=== PATIENT | female | born 1995 | race Caucasian/White ===

== ENCOUNTER 2018-10-28 19:45 | Emergency (ER) | payer OTHER, SELFPAY ==
[2018-10-28 19:46] VITALS: BP 116/73; PULSE 95; RESP 16; TEMP 36.9; O2SAT 99; BMI 18.7
[2018-10-28 20:48] VITALS: BP 126/93; PULSE 100; RESP 16
--- NOTE | 2018-10-28 21:16 | PCM.HP.STD ---
History of Present Illness Date of Admission: 10/28/18 The patient is a 23 year old female presents from [facility] for treatment of ectopic . LMP approx 7 w 1 d ago (09/08/18) and presented for evaluation with spotting and cramping in mid lower abdomen. Describes pain as 6-7/ 10 on pain scale. mild nausea, no vomiting. First . States periods were regular. Denies any medical problems. Asking about going out of state on [place]oneymoon for two weeks, starting Nov 08. SONO at [facility]: Uterus RV with thickened endometrial stripe of 3.5 cm. with 4.6 mm echolucency possible pseudosac L adnexa with hypervascularity with appearance of ring of fire suspicious for ectopic. Small amt of free fluid LABS from [facility]: A negative, RhoGAM given. Hgb 14.9 g/dl. Cr 0.7 mg/dl AST/ALT/Alkaline phos WNL. Beta HCG 671.7 mIU/ml. 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 Talkative - Physical Exam General: Alert, Oriented x3, Cooperative, No apparent distress HEENT: Atraumatic, EOMI Oral: Moist Mucosa Neck: Supple Abdomen: Soft, Non Tender - Nonsurgical Extremities: No clubbing, No cyanosis, No edema Skin: No rashes Neurological: Cranial nerves II-XII grossly intact Psych/Mental Status: Normal Affect, Appropriate Vital Signs Temp Pulse Resp BP Pulse Ox 98.5 F 100 16 126/93 H 99 10/28/18 19:46 10/28/18 20:48 10/28/18 20:48 10/28/18 20:48 10/28/18 19:46 Oxygen Delivery Method Room Air Weight: 51 kg Body Mass Index (BMI) 18.7 Assessment/Plan 7w 1 d Ectopic . Clinically stable with nonsurgical abdomen, quant BHCG at [facility] (where she will also have her f/u labs) 617.7 mIU/ml Hgb stable. L adnexa with increased vascularity and ring of fire appearance c/w ectopic, but no FHR noted. Advised pt re option for surgery vs medical management. Prefers medical management. reviewed R,B,A or Methotrexate tx. Single dose at approx 50 mg/m2 to be given tonight. Will need close follow up labs.. Plan quant at [facility] on 11/01/18 and then q wk f/u labs at [facility] with visits with Dr. Zayas in [place]. Advised of potential for inc abdominal pain, rupture of fallopian tube with surgical intervention required should these occur. Expresses understanding of all. All questions answered to patient's satisfaction. Methotrexate to be given. Return [facility] on 11/01/18 for labs, and to Dr. Zayas on 11/04/18. for next labs
--- NOTE | 2018-10-28 21:24 | HP.PCM_ITS ---
History of Present Illness Date of Admission: 10/28/18 The patient is a 23 year old female presents from [facility] for treatment of ectopic . LMP approx 7 w 1 d ago (09/08/18) and presented for evaluation with spotting and cramping in mid lower abdomen. Describes pain as 6-7/ 10 on pain scale. mild nausea, no vomiting. First . States periods were regular. Denies any medical problems. Asking about going out of state on Honeymoon for two weeks, starting Nov 08. SONO at [facility]: Uterus RV with thickened endometrial stripe of 3.5 cm. with 4.6 mm echolucency possible pseudosac L adnexa with hypervascularity with appearance of ring of fire suspicious for ectopic. Small amt of free fluid LABS from [facility]: A negative, RhoGAM given. Hgb 14.9 g/dl. Cr 0.7 mg/dl AST/ALT/Alkaline phos WNL. Beta HCG 671.7 mIU/ml. 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 Talkative - Physical Exam General: Alert, Oriented x3, Cooperative, No apparent distress HEENT: Atraumatic, EOMI Oral: Moist Mucosa Neck: Supple Abdomen: Soft, Non Tender - Nonsurgical Extremities: No clubbing, No cyanosis, No edema Skin: No rashes Neurological: Cranial nerves II-XII grossly intact Psych/Mental Status: Normal Affect, Appropriate Vital Signs Temp Pulse Resp BP Pulse Ox 98.5 F 100 16 126/93 H 99 10/28/18 19:46 10/28/18 20:48 10/28/18 20:48 10/28/18 20:48 10/28/18 19:46 Oxygen Delivery Method Room Air Weight: 51 kg Body Mass Index (BMI) 18.7 Assessment/Plan 7w 1 d Ectopic . Clinically stable with nonsurgical abdomen, quant BHCG at [facility] (where she will also have her f/u labs) 617.7 mIU/ml Hgb stable. L adnexa with increased vascularity and ring of fire appearance c/w ectopic, but no FHR noted. Advised pt re option for surgery vs medical management. Prefers medical management. reviewed R,B,A or Methotrexate tx. Single dose at approx 50 mg/m2 to be given tonight. Will need close follow up labs.. Plan quant at [facility] on 11/01/18 and then q wk f/u labs at [facility] with visits with Dr. Zayas in [place]. Advised of potential for inc abdominal pain, rupture of fallopian tube with surgical intervention required should these occur. Expresses understanding of all. All questions answered to patient's satisfaction. Methotrexate to be given. Return [facility] on 11/01/18 for labs, and to Dr. Zayas on 11/04/18. for next labs
--- NOTE | 2018-10-28 21:33 | PCM.DC ---
- Discharge Diagnoses Current Active Problems: ECTOPIC You will use the following diet at home:: No restrictions - Do NOT take a multivitamin or folic acid (B vitamins) while being treated for ectopic with methotrexate. Discharge Activity: Return to Normal Activity May resume sexual activity in: 2 weeks Call your doctor if you observe: Shortness of breath, Uncontrolled pain - If you have pain not controlled by Tylenol , call the office at [phone] for appointment. Pending Tests on Discharge: You will need to go to [facility] for lab testing : 1.) 11/01/18 for repeat Beta HCG. 2.) 11/04 for repeat Beta HCG, Liver tests and creatinine. Allergies/Adverse Reactions: Allergies No Known Allergies Allergy (Verified 10/28/18 19:49) Primary Care Physician: Vidal Gonzalez MD [Primary Care Provider] - Test Results: Test results from this visit will be discussed in further detail at your follow-up appointment, if applicable. Please Follow Up With: Braulio Zayas MD - [phone] to schedule appt for 11/04/18 When: at [address] [place], [place]. ([facility])
--- NOTE | 2018-10-28 21:38 | DCINST_ITS ---
- Discharge Diagnoses Current Active Problems: ECTOPIC You will use the following diet at home:: No restrictions - Do NOT take a multivitamin or folic acid (B vitamins) while being treated for ectopic with methotrexate. Discharge Activity: Return to Normal Activity May resume sexual activity in: 2 weeks Call your doctor if you observe: Shortness of breath, Uncontrolled pain - If you have pain not controlled by Tylenol , call the office at [phone] for appointment. Pending Tests on Discharge: You will need to go to [facility] for lab testing : 1.) 11/01/18 for repeat Beta HCG. 2.) 11/04 for repeat Beta HCG, Liver tests and creatinine. Allergies/Adverse Reactions: Allergies No Known Allergies Allergy (Verified 10/28/18 19:49) Primary Care Physician: Vidal Gonzalez MD [Primary Care Provider] - Test Results: Test results from this visit will be discussed in further detail at your follow- up appointment, if applicable. Please Follow Up With: Braulio Zayas MD - [phone] to schedule appt for 11/04/18 When: at [address] [place], [place]. ([facility])
[2018-10-28 22:21] VITALS: BP 112/74; PULSE 70; RESP 16; O2SAT 100
--- NOTE | 2018-10-28 22:36 | ED.RN ---
IV that was placed from [facility] was removed with angiocath intact. Methotrexate verified by this RN and Yari RN along with student. Discharge instructions reviewed with patient that was provided by Dr. Morley. PT understands instructions. All questions answered, no further concerns. PT ambulated to lobby with an independent gait with spouse. Their local tanker truck driver was in lobby.
--- NOTE | 2018-10-29 00:44 | ED.DCSUM_ITS ---
- ER Visit Summary Date of Service: 10/28/18 Chief Complaint: Ectopic History of Present Illness: The patient is a 23 F patient was sent up from [facility] in [place] with findings of ectopic . Patient was discussed with Dr. adenike Healy who asked the patient be sent to the ER here for her to evaluate. Patient is currently 7 weeks . She has had bleeding and lower abdominal pain for the past 4 days. Patient was found to be Rh- and did receive RhoGam. This is patient's first . Physical Examination: Vital signs unremarkable. Patient sitting upright in bed no acute distress. Heart is regular rate and rhythm. Lung sounds are clear. Abdomen is soft with mild lower abdominal tenderness. No guarding or rebound. Test Results: Test results from outside facility are reviewed. Hemoglobin is 14.9 with a quant of 617. Ultrasound revealed an abnormal echogenicity to the left adnexa with adjacent free fluid. Surrounding hypervascularity makes this suspicious for an ectopic . There is a 4.6 mm echolucency in the uterus which may represent pseudotumor. Emergency Department Course and Treatment: Dr. Morley was called on patient's arrival. She presented to the emergency room and evaluate the patient. Patient was given methotrexate. Dr. Morley had discharge instructions written and will follow-up. Treatment Plan: [] Disposition: Discharge Impression: Ectopic This note was generated with [employer] dictation software. It may contain incorrect words, spelling, and punctuation that were not noted in review of the chart prior to signing ED Disposition - Plan for ED Patient: Disposition: Home or Assisted Living Chief Complaint: Referrals: Vidal Gonzalez MD [Primary Care Provider] -
--- OUTSIDE RECORDS SUMMARY | 2018-12-30 23:48 | XMS RPT_ITS ---
:1995 Author Organization OHIP Care Team Providers Name Role Phone JESSCIA BENNETT [facility] Admitting Unavailable [facility] Attending Unavailable KIKO [facility] Primary Care Unavailable ALEXUS, DR LENY Taylor Admitting Unavailable ALEXUS, DR LENY Taylor Attending Unavailable DR LENY VAUGHAN Primary Care Unavailable NO, DOCTOR ON Referring Unavailable NO, DOCTOR ON Consulting Unavailable ISABEL TEJADA Admitting Unavailable ISABEL TEJADA Attending Unavailable ISABEL TEJADA Primary Care Unavailable VIDAL PAUL Consulting Unavailable PROVIDER, UNKNOWN Consulting Unavailable PROVIDER, UNKNOWN Consulting Unavailable PROVIDER, UNKNOWN Consulting Unavailable Rylie Morrow Attending Unavailable Vidal Paul Primary Care Unavailable PROBLEMS PROBLEMS DATE TYPE CONDITION / CODE ATTENDING STATUS SOURCE 10/28/[address] Whit VAUGHAN Diagnosis related LENY Taylor [facility] conditions, first Hospital trimester / Repository K49742(ICD-10) 10/28/[address] Whit VAUGHAN Diagnosis related [facility] conditions, first Hospital trimester / Repository Q63659(ICD-10) 10/28/2018 Secondary Less than [address] Whit VAUGHANerene Diagnosis gestation of [facility] / Hospital Z3A01(ICD-10) Repository 10/28/[address] ALEXUS Active [facility] Diagnosis ectopic [facility] intrauterine Repository / O0090(ICD-10) PROCEDURES PROCEDURES No Procedure Records FoundRESULTS RESULTS PREG SERUM QUANT Collected: 11/01/2018 Status: F Source: [facility] 8:39 AM [facility] REPOSITORY TYPE CODE TESTS RESULT OUT OF REFERENCE UNITS RANGE LAB HCG mIU/mL QUANTITATI VE(LOINC) HCG QUANTITATIVE 263.28 Result Comment: Reference Range: Male: <5 Female: Non: <5 1 - 7 days : 5 - 50 1 - 2 weeks: 50 - 500 2 - 3 weeks: 100 - 5000 3 - 4 weeks: 500 - 10,000 4 - 5 weeks: 1000 - 50,000 5 - 6 weeks: 10,000 - 100,000 6 - 8 weeks: 15,000 - 200,000 2 - 3 months: 10,000 - 100,000 2ND TRIMESTER 3000-50,000 3RD TRIMESTER 1000-50,000 Performed By: #### [id number] #### [facility],[address] [place] [address] EMERGENCY DEPARTMENT Observed: 10/29/2018 Status: F Source: [place] SUMMARY 2:44 PM [facility] REPOSITORY [facility] Medical Records Department [address] [place] [address] Emergency Department Summary 10/29/18 0042 MR#: [id number] Acct: [id number] Name: JEANNETTE MARINO Rep #: [id number] : 1995 23 From: Rylie Morrow MD PCP: Vidal Paul MD Status: DEP ER - ER Visit Summary Date of Service: 10/28/18 Chief Complaint: Ectopic History of Present Illness: The patient is a 23 F patient was sent up from [facility] in [place] with findings of ectopic . Patient was discussed with Dr. aednike Helay who asked the patient be sent to the ER here for her to evaluate. Patient is currently 7 weeks . She has had bleeding and lower abdominal pain for the past 4 days. Patient was found to be Rh- and did receive RhoGam. This is patient's first . Physical Examination: Vital signs unremarkable. Patient sitting upright in bed no acute distress. Heart is regular rate and rhythm. Lung sounds are clear. Abdomen is soft with mild lower abdominal tenderness. No guarding or rebound. Test Results: Test results from outside facility are reviewed. Hemoglobin is 14.9 with a quant of 617. Ultrasound revealed an abnormal echogenicity to the left adnexa with adjacent free fluid. Surrounding hypervascularity makes this suspicious for an ectopic . There is a 4.6 mm echolucency in the uterus which may represent pseudotumor. Emergency Department Course and Treatment: Dr. Tejada was called on patient's arrival. She presented to the emergency room and evaluate the patient. Patient was given methotrexate. Dr. Tejada had discharge instructions written and will follow-up. Treatment Plan: [] Disposition: Discharge Impression: Ectopic This note was generated with Draft dictation software. It may contain incorrect words, spelling, and punctuation that were not noted in review of the chart prior to signing ED Disposition - Plan for ED Patient: Disposition: Home or Assisted Living Chief Complaint: Referrals: Vidal Paul MD [Primary Care Provider] - What to do if you have Problems For any increased pain, shortness of breath, bleeding, nausea or vomiting, chest pain, or any unexpected problems, contact your Primary Care Provider. Call [facility] ([phone]) or report to the closest Emergency Room. Call 911 if necessary. 10/29/18 3048 <Electronically signed by Rylie Morrow MD> Date Rylie Morrow MD Cosigner Signature (If Indicated): Date CC: Vidal Paul MD HISTORY AND PHYSICAL Observed: 10/28/2018 Status: F Source: [place] EXAM 9:41 PM [facility] REPOSITORY [facility] Medical Records Department [address] [place] [address] History and Physical 10/28/182115 MR#: [id number] Acct: [id number] Name: JEANNETTE MARINO Rep #: [id number] : 1995 From: Isabel Tejada MD PCP: Vidal Paul MD Status: REG ER Y Location: ED History of Present Illness Date of Admission: 10/28/18 The patient is a 23 year old female presents from [facility] for treatment of ectopic . LMP approx 7 w 1 d ago (09/08/18) and presented for evaluation with spotting and cramping in mid lower abdomen. Describes pain as 6-7/ 10 on pain scale. mild nausea, no vomiting. First . States periods were regular. Denies any medical problems. Asking about going out of state on Honeymoon for two weeks, starting Nov 08. SONO at [facility]: Uterus RV with thickened endometrial stripe of 3.5 cm. with 4.6 mm echolucency possible pseudosac L adnexa with hypervascularity with appearance of ring of fire suspicious for ectopic. Small amt of free fluid LABS from [facility]: A negative, RhoGAM given. Hgb 14.9 g/dl. Cr 0.7 mg/dl AST/ALT/Alkaline phos WNL. Beta HCG 671.7 mIU/ml. 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 Talkative - Physical Exam General: Alert, Oriented x3, Cooperative, No apparent distress HEENT: Atraumatic, EOMI Oral: Moist Mucosa Neck: Supple Abdomen: Soft, Non Tender - Nonsurgical Extremities: No clubbing, No cyanosis, No edema Skin: No rashes Neurological: Cranial nerves II-XII grossly intact Psych/Mental Status: Normal Affect, Appropriate Vital Signs Temp Pulse Resp BP Pulse Ox 98.5 F 100 16 126/93 H 99 10/28/18 19:46 10/28/18 20:48 10/28/18 20:48 10/28/18 20:48 10/28/18 19:46 Oxygen Delivery Method Room Air Weight: 51 kg Body Mass Index (BMI) 18.7 Assessment/Plan 7w 1 d Ectopic . Clinically stable with nonsurgical abdomen, quant BHCG at [facility] (where she will also have her f/u labs) 617.7 mIU/ml Hgb stable. L adnexa with increased vascularity and ring of fire appearance c/w ectopic, but no FHR noted. Advised pt re option for surgery vs medical management. Prefers medical management. reviewed R,B,A or Methotrexate tx. Single dose at approx 50 mg/m2 to be given tonight. Will need close follow up labs.. Plan quant at [facility] on 11/01/18 and then q wk f/u labs at [facility] with visits with Dr. Zayas in [place]. Advised of potential for inc abdominal pain, rupture of fallopian tube with surgical intervention required should these occur. Expresses understanding of all. All questions answered to patient's satisfaction. Methotrexate to be given. Return [facility] on 11/01/18 for labs, and to Dr. Zayas on 11/04/18. for next labs 10/28/18 2141 <Electronically signed by Isabel Tejada MD> Date Isabel Tejada MD [facility] Signature: Date (if applicable) CC: Isabel Tejada MD; Vidal Paul MD Signed DISCHARGE INSTRUCTION Observed: 10/28/2018 Status: F Source: [place] 9:39 PM [facility] REPOSITORY [facility] Medical Records Department [address] [place] [address] Instructions for Home/Discharge Instructions 10/28/182132 MR#: [id number] Acct: [id number] Name: JEANNETTE MARINO Rep #: [id number] : 1995 From: Isabel Tejada MD PCP: Vidal Paul MD Status: REG ER - Discharge Diagnoses Current Active Problems: ECTOPIC You will use the following diet at home:: No restrictions - Do NOT take a multivitamin or folic acid (B vitamins) while being treated for ectopic with methotrexate. Discharge Activity: Return to Normal Activity May resume sexual activity in: 2 weeks Call your doctor if you observe: Shortness of breath, Uncontrolled pain - If you have pain not controlled by Tylenol , call the office at [phone] for appointment. Pending Tests on Discharge: You will need to go to [facility] for lab testing : 1.) 11/01/18 for repeat Beta HCG. 2.) 11/04 for repeat Beta HCG, Liver tests and creatinine. Allergies/Adverse Reactions: Allergies No Known Allergies Allergy (Verified 10/28/18 19:49) Primary Care Physician: Vidal Paul MD [Primary Care Provider] - Test Results: Test results from this visit will be discussed in further detail at your follow-up appointment, if applicable. Please Follow Up With: Braulio Zayas MD - [phone] to schedule appt for 11/04/18 When: at [facility] BETO Ramirez. ([facility]) 10/28/182138 <Electronically signed by Isabel Tejada MD> Date Isabel Tejada MD CC: Vidal Paul MD Signed CBC Collected: 10/28/2018 Status: F Source: [facility] 3:40 PM [facility] REPOSITORY TYPE CODE TESTS RESULT OUT OF RANGE REFERENCE UNITS LAB CBC(LOINC) CBC Result Comment: CBC-COMPLETE BLOOD COUNT LAB WBC(LOINC) 4.5 - 10.8 x 10EE3/UL WBC High 11.2 LAB RBC(LOINC) 4.10 - x 10EE6/UL 5.30 RBC 5.12 LAB HEMOGLOBIN(LOINC 12.0 - g/dl ) 16.0 HEMOGLOBIN 14.9 LAB HEMATOCRIT(LOINC 34.0 - % ) 46.0 HEMATOCRIT 44.3 LAB MCV(LOINC) 80 - 99 fl MCV 87 LAB MCH(LOINC) 27 - 33 pg MCH 29 LAB MCHC(LOINC) 32 - 36 X10 3 MCHC 34 LAB RDW/CV(LOINC) 12.0 - % 15.6 RDW/CV 13.5 LAB PLATELET(LOINC) 150 - 450 x10EE3/UL PLATELET 265 LAB MPV(LOINC) 6.6 - 10.5 fl MPV 8.1 Result Comment: AUTOMATED DIFFERENTIAL LAB NEUT %(LOINC) 46.0 - 76.0 % NEUT % High 81.2 LAB LYMPH %(LOINC) 20.0 - 45.0 % Low LYMPH % 13.4 LAB MONOS %(LOINC) 0.0 - 10.0 % MONOS % 4.5 LAB EO %(LOINC) 0.0 - 7.0 % EO % 0.6 LAB BASO %(LOINC) 0.0 - 2.0 % BASO % 0.3 LAB Lymph #(LOINC) 0.80 - 2.80 x10EE3/U L Lymph # 1.50 LAB Neut #(LOINC) 1.50 - 7.10 x10EE3/U L Neut # High 9.10 LAB Morton #(LOINC) 0.20 - 1.00 x10EE3/U L Morton # 0.50 LAB EO #(LOINC) 0.00 - 0.50 x10EE3/U L EO # 0.10 LAB Baso #(LOINC) 0.00 - 0.10 x10EE3/U L Baso # 0.00 LAB MANUAL DIFF(LOINC) MANUAL DIFF N/A LAB MORPHOLOGY(LOINC ) MORPHOLOGY N/A Result Comment: {CD] Performed By: #### [id number] #### [facility],[address] [place] [address] URINALYSIS Collected: 10/28/2018 Status: F Source: [facility] 3:40 PM [facility] REPOSITORY TYPE CODE TESTS RESULT OUT OF REFERENCE UNITS RANGE LAB URINALYSIS (LOINC) URINALYSIS Result Comment: URINALYSIS LAB Specimen Type(LOINC) Specimen Type Clean catch LAB Color(LOINC) NORMAL: YELLOW Color p.yel LAB Clarity(LOINC) NORMAL: CLEAR Clarity clear LAB ph(LOINC) NORMAL: 5.0-8.0 ph 6 LAB Protein(LOINC) NORMAL: NEGATIVE Protein NEG LAB Glucose(LOINC) NORMAL: NORMAL Glucose NORM LAB Ketone(LOINC) NORMAL: NEGATIVE Ketone NEG LAB Bilirubin(LOINC) NORMAL: NEGATIVE Bilirubin NEG LAB Blood(LOINC) NORMAL: NEGATIVE Blood Abnormal 150 LAB Urobilinog(LOINC) NORMAL: NORMAL Urobilinog NORM LAB Sp [place](LOINC) NORMAL: 1.010-1.030 Sp [place] 1.010 LAB Nitrite(LOINC) NORMAL: NEGATIVE Nitrite NEG LAB Leukocytes(LOINC) NORMAL: NEGATIVE Leukocytes NEG LAB Microscopic(LOINC ) Microscopic SEE BELOW Result Comment: MICROSCOPIC LAB Wbc(LOINC) 0-5/hpf Wbc NONE LAB Rbc(LOINC) 0-3/hpf Rbc 5-10 LAB Casts(LOINC) Casts NONE LAB Crystals(LOINC) Crystals NONE LAB Amorphous(LOINC) Amorphous NONE LAB Bacteria(LOINC) Bacteria NONE LAB Epi Cells(LOINC) Epi Cells NONE LAB Mucous(LOINC) Mucous NONE LAB Yeast(LOINC) Yeast NONE Performed By: #### [id number] #### [facility],[address] [place] [address] CMP WITH EGFR Collected: 10/28/2018 Status: F Source: [facility] 3:40 PM [facility] REPOSITORY TYPE CODE TESTS RESULT OUT OF RANGE REFERENCE UNITS LAB CMP with eGFR(LOINC) CMP with eGFR Result Comment: COMPREHENSIVE METABOLIC PANEL LAB SODIUM(LOINC) 136 - 145 mmol/l SODIUM 137 LAB POTASSIUM(LOINC) 3.5 - 5.1 mmol/L POTASSIUM 3.5 LAB CHLORIDE(LOINC) 98 - 107 mmol/L CHLORIDE 102 LAB CO2(LOINC) 21.0 - mmol/L 31.0 CO2 24.7 LAB GLUCOSE(LOINC) 74 - 106 mg/dl GLUCOSE 98 LAB BUN(LOINC) 6 - 20 mg/dl BUN 9 LAB CREATININE(LOINC) 0.6 - 1.2 mg/dl CREATININE 0.7 LAB AST/SGOT(LOINC) 13 - 39 U/L AST/SGOT 19 LAB ALK PHOS(LOINC) 38 - 126 U/L ALK PHOS 38 LAB CALCIUM(LOINC) 8.6 - mg/dl 10.2 CALCIUM 9.3 LAB TOTAL PROTEIN(LOINC) 6.4 - 8.3 g/dl TOTAL PROTEIN 7.6 LAB ALBUMIN(LOINC) 3.4 - 4.8 g/dL ALBUMIN 4.7 LAB GLOBULIN(LOINC) 1.5 - 3.8 G/DL GLOBULIN 2.9 LAB A/G RATIO(LOINC) 0.9 - 1.6 A/G RATIO 1.6 LAB TOTAL BILI(LOINC) 0.0 - 1.5 mg/dl TOTAL BILI 0.3 LAB B/C RATIO(LOINC) 0 - 30 ratio B/C RATIO 13 LAB ALT/SGPT(LOINC) 8 - 35 U/L ALT/SGPT 14 LAB ANION GAP(LOINC) 10 - 20 mmol/L ANION GAP 14 LAB AGE(LOINC) years AGE 23 LAB eGFR(LOINC) 60 - 999 ML/MINUTE eGFR >60 LAB eGFR(AA)(LOINC) 60 - 999 ML/MINUTE eGFR(AA) >60 Result Comment: ACCORDING TO THE NATIONAL KIDNEY DISEASE EDUCATION PROGRAM(NKDE), A NORMAL eGFR IS A VALUE GREATER THAN OR EQUAL TO 60 ML/MIN/1.73 SQ METERS. CHRONIC KIDNEY DISEASE: <60mL/MIN/1.73 SQ METERS KIDNEY FAILURE: <15mL/MIN/1.73 SQ METERS THIS TEST SHOULD ONLY BE USED FOR PATIENTS 18 YEARS OF AGE AND OLDER. Performed By: #### [id number] #### [address] [address] BB TYPE & SCREEN Collected: 10/28/2018 Status: F Source: [facility] 3:40 PM [facility] REPOSITORY TYPE CODE TESTS RESULT OUT OF REFERENCE UNITS RANGE LAB BB TYPE & SCREEN(LOIN C) BB TYPE & SCREEN Result Comment: TYPE, Rh, AND SCREEN LAB ABO(LOINC) ABO A LAB Rh(LOINC) Rh NEG LAB ANTIBODY SCR(LOINC) ANTIBODY negative SCR Performed By: #### [id number] #### [address] [place] [address] PREG SERUM QUANT Collected: 10/28/2018 Status: F Source: [facility] 3:40 PM [facility] REPOSITORY TYPE CODE TESTS RESULT OUT OF REFERENCE UNITS RANGE LAB HCG mIU/mL QUANTITATI VE(LOINC) HCG QUANTITATIVE 617.73 Result Comment: Reference Range: Male: <5 Female: Non: <5 1 - 7 days : 5 - 50 1 - 2 weeks: 50 - 500 2 - 3 weeks: 100 - 5000 3 - 4 weeks: 500 - 10,000 4 - 5 weeks: 1000 - 50,000 5 - 6 weeks: 10,000 - 100,000 6 - 8 weeks: 15,000 - 200,000 2 - 3 months: 10,000 - 100,000 2ND TRIMESTER 3000-50,000 3RD TRIMESTER 1000-50,000 Performed By: #### [id number] #### [facility],[address] [place] [address] PROGRESS NOTES Observed: 10/28/2018 Status: F Source: [facility] 3:04 PM [facility] REPOSITORY [facility] PROGRESS NOTE NAME ACCOUNT SEX AGE ADMIT DISCHARGE PT MED. RECORD# NUMBER DATE DATE TYPE JEANNETTE MARINO [id number] F 23 10/28/18 3 [id number] ROOM: ER DATE OF : 1995 DICTATING PHYSICIAN: Amari Dwyer DATE OF SERVICE: October 28, 2018 CHIEF COMPLAINT: Probable ectopic . SUBJECTIVE: Jeannette is a 23-year-old primigravida with first day of last menstrual period approximately the 07 of September who was seen by her resource manager forester today, Марина Martinez. This should be typed as quickly as possible as she is being transferred for some pelvic pain and some spotting. She came to [facility] and had an ultrasound, a copy of which is submitted. Ectopic is suspected. She also has a thickened endometrium. OBJECTIVE: On examination, she is stable and in no distress. Her vital signs are stable. Her abdomen is nondistended. She is mildly tender suprapubically bilaterally. She has scant vaginal bleeding and no other abnormal findings. DIAGNOSTIC DATA: Quantitative hCG is 617.7. Other laboratories including CBC, metabolic panel, and urinalysis are essentially unremarkable. Her blood type is A negative with a negative antibody screen, and she will be administered RhoGAM here. ASSESSMENT: After discussion with Jeannette and her , in my opinion she is a candidate for methotrexate therapy. We do not offer that service here and I contacted [facility] and spoke to the on-call DRAGLINE ENGINEER, Dr. Isabel Tejada, who agreed to accept her in transferred to the emergency room and further assess her for the possibility of a course of methotrexate therapy to hopefully resolve this. PLAN: She will be transferred by private vehicle to the emergency room at [facility] and Dr. Tejada is aware of the transfer. I did say that if the patient and Dr. Tejada find it convenient after she administers the methotrexate, I would be willing to follow her here, for travel reasons for the couple. Dictated By: Amari Dwyer DO 10/28/18 18:15 JOB #: [id number] Transcribed By: esequiel 10/28/18 18:26 Electronically signed by: Page 1 of 2 JEANNETTE MARINO Progress Note E-Sign Dr. Amari Dwyer DO 10/29/18 15:15 Page 2 of 2 JEANNETTE MARINO Progress Note US OB INITIAL< 14 Observed: 10/28/2018 Status: F Source: [facility]; 1ST GESTATION 2:08 PM [place] [address] Patient: JEANNETTE MARINO Denys. Phone#: : 1995 Age: 23 Gender: F Pt. Type: Out Account: [id number] Location: Ordering: МАРИНА MCKEONBIN Exam Date: 10/28/2018/13:28 Family Phys: Charge Code: [id number] Physician: Orange Order #: [id number] DLP Dose#: PROCEDURE: OB INITIAL <14 WEEKS ULTRASOUND, TRANSABDOMINAL ENDOVAGINAL COMPARISON: None. INDICATIONS: Vaginal bleeding TECHNIQUE: Transabdominal and endovaginal pelvic ultrasound examinations were performed. FINDINGS: GESTATIONAL SAC: A 4.6 mm lucency is present in the in canal raising possibility of pseudocyst gestational sac versus very early gestational sac. POLE: Not identified YOLK SAC: Not identified CARDIAC ACTIVITY: Not identified UTERUS: Uterus is retroverted. There is markedly thickened endometrium measuring 3.5 cm in thickness. ADNEXAE/OVARIES: There is a focus within the immediate echogenicity in the left adnexa. There is hypervascularity with appearance suggestive of ring of fire raising a suspicion of ectopic . There is small amount of free fluid. CUL-DE-SAC: Small amount of free fluid is present adjacent to the left ovary. CERVICAL LENGTH: N/A CLINICAL AGE: 7 weeks one day SONOGRAPHIC AGE: N/A PLACENTA: N/A AMNIOTIC FLUID VOLUME: N/A OTHER: Negative. CONCLUSION: 1. Focus of abnormal echogenicity in the left adnexa with adjacent free fluid is present. There is surrounding hypervascularity. The finding is suspicious for ectopic . 2. The endometrium is markedly thickened. A 4.6 mm echolucency is present raising possibility of pseudotumor station the sac. Dictated by: Joyce Snell MD on 10/28/2018 at 14:17 Continued Report - Page 2 of 2 Patient: GUICHO MARINOH Earl Phone#: : 1995 Age: 23 Gender: F Pt. Type: Out Account: [id number] Location: Ordering: EDWARDRORO MARTINEZ Exam Date: 10/28/2018/13:28 Family Phys: Charge Code: [id number] Physician: Orange Order #: [id number] DLP Dose#: Approved by: Joyce Snell MD on 10/28/2018 at 14:17 US OB ENDO VAGINAL Observed: 10/28/2018 Status: F Source: [facility] 2:08 PM [place] [address] Patient: JEANNETTE MARINODavis Phone#: : 1995 Age: 23 Gender: F Pt. Type: Out Account: [id number] Location: Ordering: МАРИНА MARTINEZ Exam Date: 10/28/2018/13:28 Family Phys: Charge Code: [id number] Physician: Orange Order #: [id number] DLP Dose#: PROCEDURE: OB INITIAL <14 WEEKS ULTRASOUND, TRANSABDOMINAL ENDOVAGINAL COMPARISON: None. INDICATIONS: Vaginal bleeding TECHNIQUE: Transabdominal and endovaginal pelvic ultrasound examinations were performed. FINDINGS: GESTATIONAL SAC: A 4.6 mm lucency is present in the in canal raising possibility of pseudocyst gestational sac versus very early gestational sac. POLE: Not identified YOLK SAC: Not identified CARDIAC ACTIVITY: Not identified UTERUS: Uterus is retroverted. There is markedly thickened endometrium measuring 3.5 cm in thickness. ADNEXAE/OVARIES: There is a focus within the immediate echogenicity in the left adnexa. There is hypervascularity with appearance suggestive of ring of fire raising a suspicion of ectopic . There is small amount of free fluid. CUL-DE-SAC: Small amount of free fluid is present adjacent to the left ovary. CERVICAL LENGTH: N/A CLINICAL AGE: 7 weeks one day SONOGRAPHIC AGE: N/A PLACENTA: N/A AMNIOTIC FLUID VOLUME: N/A OTHER: Negative. CONCLUSION: 1. Focus of abnormal echogenicity in the left adnexa with adjacent free fluid is present. There is surrounding hypervascularity. The finding is suspicious for ectopic . 2. The endometrium is markedly thickened. A 4.6 mm echolucency is present raising possibility of pseudotumor station the sac. Dictated by: Joyce Snell MD on 10/28/2018 at 14:17 Continued Report - Page 2 of 2 Patient: JEANNETTE MARINO Phone#: : 1995 Age: 23 Gender: F Pt. Type: Out Account: [id number] Location: Ordering: МАРИНА MARTINEZ Exam Date: 10/28/2018/13:28 Family Phys: Charge Code: [id number] Physician: Orange Order #: [id number] DLP Dose#: Approved by: Joyce Snell MD on 10/28/2018 at 14:17 THYROID PANEL Collected: 08/27/2018 Status: F Source: [facility] 9:10 AM [facility] REPOSITORY TYPE CODE TESTS RESULT OUT OF RANGE REFERENCE UNITS LAB T4(LOINC) 6.0 - 12.2 ug/dl T4 6.5 LAB T3u(LOINC) 24 - 34 % High T3u 41 LAB TSH(LOINC) 0.34 - 5.60 uIU/ml TSH 2.89 LAB FTI(LOINC) 1.0 - 4.0 FTI 2.7 Performed By: #### [id number] #### [facility],[address] [place] [address] ALLERGIES ALLERGIES DATE TYPE / CODE NAME / CODE REACTION SEVERITY SOURCE 10/28/2018 Drug No Known Unknown Cheryl Allergy/[id number](S Allergies/F0019 [facility] NOMED CT) 84717(RXNORM) Hospital Repository Miscellaneous No Known Drug Moderate [facility] Allergy/[id number](S Allergies ([facility]) Modifier) Hospital (Qualifier Repository Value) ENCOUNTERS ENCOUNTERS ADMIT/DISCHARGE ACCOUNT ADMITTING ENCOUNTER LOCATION SOURCE NUMBER CLASS 11/01/2018 [id number] [facility], Ambulatory [facility] Repository 10/28/2018/ [id number] Emergency [facility] [address] [place] [address] ing:ED Repository 10/28/2018/ [id number] DR ALEXUS Emergency [facility] [place] [address] 9 LENY nicholson: ERBed: [facility] Repository 08/27/2018/ [id number] [facility], [facility] 8 [facility] Repository PAYERS PAYERS ENCOUNTER GUARANTOR PAYER SUBSCRIBER SOURCE 11/01/2018 JEANNETTE Mcfarlane Primary FIRMAN [facility] [id number] [facility] [id number] [address], Number: 8Effective 7 [facility] [address]Dzg: Date: [address] [place] [id number] () 10/28/2018 NBA I Primary FIRMAN I [facility] Insurance:[address] [address]Lvw: [id number] GROUPPolic Number: Repository [phone] () [id number] Date: [address] [address]YG: 10/28/2018 Secondary NOT GIVENUNK [place] Insurance:SELF PAY [facility] Number: Effective Repository Date:2018-10-28 10/28/[address]: Insurance:[address]: [facility] [id number] [facility] [id number] [facility] 70[place], Number: [id number] [id number] [place]ository [place] [address]Voz: Date: [address] [place] [phone] ()
== END 2018-10-28 22:39 | disposition home or self-care (01) ==
LOC: ED 21:16
PROVIDERS: Emergency Provider Emergency Medicine; Family Provider Family Medicine; PCP Family Medicine
DX: O00.00 Abdominal pregnancy without intrauterine pregnancy (principal); Z3A.01 Less than 8 weeks gestation of pregnancy; O26.891 Other specified pregnancy related conditions, first trimester
CPT/HCPCS: 96372; 99283; J9250